=== PATIENT | male | born 1965 ===

== ENCOUNTER 2016-08-12 18:38 | Inpatient (IN) | payer MEDICAID, SELFPAY ==
[2016-08-12 18:38] VITALS: BMI 30.9
[2016-08-12] MEDS ORDERED: Piperacill/Tazo 3.375gm in Dex 50 ML IVPB STA (19:25)
--- NOTE | 2016-08-12 19:37 | C.PDOC ---
History Of Present Illness 51 year old patient, with a past medical history of gastritis, hypertension, kidney stones, renal cell carcinoma, chronic kidney disease, and asthma, presents to the ED complaining of left 4th finger pain and swelling for the past 5 days. Patient states he was shoveling snow and a blister formed. He popped it and then it became infected. He has been taking Advil for the pain. Patient denies fever, nausea, or vomiting. Time Seen by Provider: 08/12/16 19:00 Chief Complaint (Nursing): Upper Extremity Problem/Injury History Per: Patient History/Exam Limitations: no limitations Onset/Duration Of Symptoms: Days (5) Current Symptoms Are (Timing): Still Present Quality: "Pain" Severity: Moderate Pain Scale Rating Of: 5 Exacerbating Factor(s): Movement Recent travel outside of the [place]: No Past Medical History Reviewed: Historical Data, Nursing Documentation, Vital Signs Vital Signs: Last Vital Signs Temp 98.1 F 08/13/16 11:02 Pulse 65 08/13/16 11:02 Resp 18 08/13/16 11:02 BP 146/98 H 08/13/16 11:02 Pulse Ox 97 08/13/16 11:02 - Medical History PMH: Asthma, Bronchitis, Gastritis, HTN, Hyperlipidemia, Kidney Stones, Malignancy (Renal cell carcinoma as per recent biopsy), Chronic Kidney Disease, Sleep Apnea Family History: States: Unknown Family Hx - Social History Hx Tobacco Use: No Hx Alcohol Use: No Hx Substance Use: No - Immunization History Hx Tetanus Toxoid Vaccination: No Hx Influenza Vaccination: Yes Hx Pneumococcal Vaccination: Yes Review Of Systems Except As Marked, All Systems Reviewed And Found Negative. Constitutional: Negative for: Fever Gastrointestinal: Negative for: Nausea, Vomiting Musculoskeletal: Positive for: Hand Pain (left 4th finger) Skin: Positive for: Other Physical Exam - Physical Exam Appears: Non-toxic, No Acute Distress Skin: Warm, Dry, Other (small wound over the palmar aspect of the proximal phalynx of the left 4th finger (+)swelling to the palmar surface (+)redness (+) warmth) Head: Atraumatic, Normacephalic Neck: Normal ROM, Supple Chest: Symmetrical Cardiovascular: Rhythm Regular Respiratory: No Accessory Muscle Use Back: Normal Inspection Extremity: Normal ROM Neurological/Psych: Oriented x3, Normal Speech, Normal Cognition Gait: Steady ED Course And Treatment - Laboratory Results Result Diagrams: 08/12/16 19:56 08/12/16 19:56 Medical Decision Making Medical Decision Making: Plan: * Labs * Zosyn * vanco [address] Doshi- rec IV abx and admit and she will see as consult [address] Pike who will admit Disposition - Disposition Disposition: HOSPITALIZED Disposition Time: 22:46 Condition: STABLE - Clinical Impression Clinical Impression: Cellulitis of finger - Scribe Statement The provider has reviewed the documentation as recorded by the Scribe Leana Tomas Provider Attestation: All medical record entries made by the Jhonibnunu were at my direction and personally dictated by me. I have reviewed the chart and agree that the record accurately reflects my personal performance of the history, physical exam, medical decision making, and the department course for this patient. I have also personally directed, reviewed, and agree with the discharge instructions and disposition.
[2016-08-12 19:59] LABS: BASO % 0.6 % (0.0-2.0); EOS # 0.1 K/uL (0.0-0.7); EOS % 1.2 % (0.0-4.0); HEMATOCRIT 37.6 % (35.0-51.0); LYMPH # 2.1 K/uL (1.0-4.3); LYMPH % 26.1 % (20.0-40.0); MEAN CORPUSCULAR HEMOGLOBIN 31.7 pg (27.0-31.0); MEAN CORPUSCULAR HGB CONC 33.7 g/dL (33.0-37.0); MEAN PLATELET VOLUME 9.1 fL (7.2-11.7); MONO # 0.7 K/uL (0.0-0.8); MONO % 8.9 % (0.0-10.0); WHITE BLOOD COUNT 7.9 K/uL (4.8-10.8)
[2016-08-12 20:05] LABS: CHLORIDE 97 mmol/L (98-107); POTASSIUM 3.7 mmol/L (3.6-5.2); SODIUM 138 mmol/L (132-148)
[2016-08-12 20:07] LABS: AST/SGOT 17 U/L (17-59); BILIRUBIN,TOTAL 1.5 mg/dL (0.2-1.3); CARBON DIOXIDE 25 mmol/L (22-30); GFR AFRICAN-AMERICAN > 60
[2016-08-12 20:08] LABS: ALB/GLOB RATIO 1.3 (1.0-2.1); ALKALINE PHOSPHATASE 89 U/L (38-126); ALT/SGPT 12 U/L (21-72); BLOOD UREA NITROGEN 21 mg/dL (9-20); CALCIUM 8.6 mg/dl (8.6-10.4); GLUCOSE,RANDOM 102 mg/dL (75-110); TOTAL PROTEIN 7.1 g/dL (6.3-8.3)
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
[2016-08-12] MEDS ORDERED: Oxycodone/Acetaminophen 5/325 mg Tab PO PRN (22:35)
[2016-08-12] MEDS ORDERED: Iodixanol 320 MG/ML 100 ML BOTTLE IV ONE (22:57)
--- NOTE | 2016-08-12 23:33 | CP.PCM.PCO ---
Physician Communication Note - Physician Communication Note Physician Communication Note: Patient seen, possible OR tomorrow, full note to follow
--- NOTE | 2016-08-13 01:20 | CT ---
EXAM: CT Left Upper Extremity With Intravenous Contrast, Hand. CLINICAL HISTORY: 51 years old, male; Signs and symptoms; Swelling; Fingers; Left; Additional info: L 4th finger abscess TECHNIQUE: Axial computed tomography images of the left hand with intravenous contrast. This CT exam was performed using one or more of the following dose reduction techniques: automated exposure control, adjustment of the mA and/or kV according to patient size, and/or use of iterative reconstruction technique. Coronal and sagittal reformatted images were created and reviewed. CONTRAST: 100 mL of visipaque 320 administered intravenously. EXAM DATE/TIME: 08/12/2016 10:33 PM COMPARISON: There are no prior studies for comparison. FINDINGS: Bones/joints: Bony structures are intact. Soft tissues: There is soft tissue swelling about the left hand including the digits.. Soft tissue swelling and edema is greatest in the lower soft tissues of the fourth digit anterior to the proximal phalanx.. There is skin thickening. There is diffuse edema in the subcutaneous soft tissue. There is no focal rim-enhancing lesion to suggest discrete abscess. No underlying osseous lesion is identified. There is diffuse hyperemia in the left hand. IMPRESSION: Cellulitis of the left hand greatest in the volar soft tissues of the fourth digit, possible phlegmon, no discrete abscess
[2016-08-13] MEDS: Piperacill/Tazo 3.375gm in Dex 50 ML IVPB SCH ×4 (02:25→19:00)
[2016-08-13] MEDS ORDERED: Piperacillin/Tazobact 3.375 gm 100 ML IVPB ONE (04:12)
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
[2016-08-13] MEDS ORDERED: Oxycodone/Acetaminophen 5/325 mg Tab ONE (07:51)
--- NOTE | 2016-08-13 10:26 | CP.PCM.PN ---
<NicholsonMisael - Last Filed: 08/13/16 14:08> Subjective - Date & Time of Evaluation Date of Evaluation: 08/14/15 Time of Evaluation: 10:00 - Subjective Subjective: PGY2 on medicine Dr. Rodriguez service: Pt seen and examined at bedside in ED. Pt complains left hand pain secondary to abscess, controlled with pain med. No other complaints at this point. Objective - Vital Signs/Intake and Output Vital Signs (last 24 hours): Temp Pulse Resp BP Pulse Ox 97.6 F 71 18 148/86 99 08/13/16 07:46 08/13/16 07:46 08/13/16 07:46 08/13/16 07:46 08/13/16 07:46 - Medications Medications: Current Medications Famotidine (Pepcid) 20 mg IVP DAILY [facility] Last Admin: 08/13/16 01:10 Dose: 20 mg Piperacillin Sod/Tazobactam Sod (Zosyn 3.375 Gm Iv Premix) 50 mls @ 100 mls/hr IVPB Q6H [facility] Last Admin: 08/13/16 08:55 Dose: 100 mls/hr Vancomycin/Sodium Chloride (Vancocin) 200 mls @ 133.333 mls/hr IVPB Q12H [facility] Oxycodone/Acetaminophen (Percocet 5/325 Mg Tab) 1 tab PO Q6H PRN PRN Reason: Pain, severe (8-10) Stop: 08/15/16 22:36 Last Admin: 08/13/16 07:52 Dose: 1 tab - Constitutional Appears: Non-toxic, No Acute Distress - Head Exam Head Exam: NORMAL INSPECTION, NORMOCEPHALIC - Eye Exam Eye Exam: Normal appearance Pupil Exam: NORMAL ACCOMODATION - Respiratory Exam Respiratory Exam: Clear to Ausculation Bilateral, NORMAL BREATHING PATTERN. absent: Rhonchi, Wheezes - Cardiovascular Exam Cardiovascular Exam: REGULAR RHYTHM, +S1, +S2. absent: Gallop, Rubs - GI/Abdominal Exam GI & Abdominal Exam: Soft, Normal Bowel Sounds - Extremities Exam Additional comments: left 4th digits with dressing, tender to touch - Neurological Exam Neurological Exam: Alert, Awake, Oriented x3 - Psychiatric Exam Psychiatric exam: Normal Mood - Skin Skin Exam: Intact Assessment and Plan - Assessment and Plan (Free Text) Assessment: Abscess of L Finger -left 4th finger pain and swelling for the past 5 days. -Consult Hand surgeon, Dr. Doshi -> OR today -CT left hand showed left hand cellulitis greatest in the volar soft tissue of 4th digit, possible phlegmon, no discrete abscess per report. -NPO for surgery Zosyn 3.375gm IVPB Q6H (08/13) Vanco 1gm IVPB Q12 (08/13) Pain rated 7/10 Percocet 5/325 Q6H PRN Hypertension BP 148/86 now -likely due to pain -continue to monitor Prophylaxis Hold heparin for surgery Pepcid 20mg IVP SCDs <JenniferPeter H - Last Filed: 08/13/16 15:28> Objective - Vital Signs/Intake and Output Vital Signs (last 24 hours): Temp Pulse Resp BP Pulse Ox 97.6 F 66 19 147/78 97 08/13/16 15:08 08/13/16 15:08 08/13/16 15:08 08/13/16 15:08 08/13/16 15:08 - Medications Medications: Current Medications Docusate Sodium (Colace) 100 mg PO BID [facility] Famotidine (Pepcid) 20 mg IVP DAILY [facility] Last Admin: 08/13/16 12:03 Dose: Not Given Piperacillin Sod/Tazobactam Sod (Zosyn 3.375 Gm Iv Premix) 50 mls @ 100 mls/hr IVPB Q6H [facility] Last Admin: 08/13/16 14:44 Dose: 100 mls/hr Vancomycin/Sodium Chloride (Vancocin) 200 mls @ 133.333 mls/hr IVPB Q12H [facility] Last Admin: 08/13/16 12:03 Dose: Not Given Oxycodone/Acetaminophen (Percocet 5/325 Mg Tab) 1 tab PO Q4H PRN PRN Reason: Pain, moderate (4-7) Stop: 08/16/16 13:29 Attending/Attestation - Attestation I have personally seen and examined this patient.: Yes I have fully participated in the care of the patient.: Yes I have reviewed all pertinent clinical information, including history, physical exam and plan: Yes Notes (Text): 08/13/16 15:27 Medical Attending: Patient was seen and examined by me. Agree with the above note by the resident. At this time continue with IV abx Vancomycin as well as IV Zosyn. Overnight team has asked surgery to evaluate as it mayneed surgery
[2016-08-13] MEDS: Vancomycin 1 gm/NS 200 ml 200 ML IVPB SCH ×2 (12:03→21:00)
[2016-08-13] MEDS ORDERED: Midazolam 2 MG/2 ML VIAL ONE (12:48)
[2016-08-13] MEDS ORDERED: Propofol 10 mg/ml Inj (20 ML) ONE (12:49)
[2016-08-13] MEDS ORDERED: Lactated Ringer's 1,000 ML IV ONE (12:50)
[2016-08-13] MEDS ORDERED: Bupivacaine HCl 0.5% PF (10 ml) Inj ONE ×2 (12:55)
[2016-08-13] MEDS ORDERED: Lidocaine 1% Inj (20ml) ONE (12:55)
[2016-08-13] MEDS ORDERED: Bacitracin 500 Units/gm Oint Foilpak UD ONE (13:17)
[2016-08-13] MEDS ORDERED: Oxycodone/Acetaminophen 5/325 mg Tab PO PRN (13:28)
[2016-08-13] MEDS ORDERED: HYDROmorphone 0.5 mg/0.5 ml ISec IVP PRN (13:33)
--- NOTE | 2016-08-13 13:34 | PCM.SURG1 ---
Surgeon's Initial Post Op Note - Surgeon's Notes Surgeon: Glenda Transmission Design Engineer: [id number] Type of Anesthesia: General Endo Pre-Operative Diagnosis: Left 4th digit deep space abscess, possible tenosynovitis Operative Findings: see op note Post-Operative Diagnosis: Left 4th digit deep space abscess, impending tenosynovitis Operation Performed: L 4th digit incision and drainage of deep space abscess Specimen/Specimens Removed: Wound cultures Estimated Blood Loss: EBL {In ML}: 5 Blood Products Given: N/A Drains Used: No Drains Post-Op Condition: Good Date of Surgery/Procedure: 08/13/16 Time of Surgery/Procedure: 12:50
--- NOTE | 2016-08-13 13:39 | CP.PCM.PCO ---
Physician Communication Note - Physician Communication Note Physician Communication Note: Patient status post I&D, comfortable, no complaint of pain. Assessment/Plan - Assessment and Plan (Free Text) Assessment: PE: Left ring finger erythema decreased after I&D. There is no active bleding, dressing are clean and dry. A: 51 year old with deep space abscess to left ring finger. Plan: Will restart soaks later this afternoon. He should continues soaks with 20cc bedadine for every 100 cc of water or saline until the wound closes which should take about 1 week. Keep the incision covered with a band aid and Medihoney. He will have at least 2 more doese of IV antibiotics. If the wound is significantly improved tomorrow, he may be discharged with Augmentin and Medihoney. Follow up with me after discharge. Will follow along with residents while in house.
[2016-08-13 17:33] LABS: INR 1.1
[2016-08-14] MEDS: Piperacill/Tazo 3.375gm in Dex 50 ML IVPB SCH ×3 (01:00→13:43)
[2016-08-14 08:19] LABS: BASO % 0.3 % (0.0-2.0); EOS # 0.1 K/uL (0.0-0.7); EOS % 1.6 % (0.0-4.0); HEMATOCRIT 43.8 % (35.0-51.0); LYMPH # 1.9 K/uL (1.0-4.3); LYMPH % 27.4 % (20.0-40.0); MEAN CELL VOLUME 94.9 fL (80.0-94.0); MEAN CORPUSCULAR HEMOGLOBIN 31.3 pg (27.0-31.0); MEAN CORPUSCULAR HGB CONC 32.9 g/dL (33.0-37.0); MEAN PLATELET VOLUME 8.9 fL (7.2-11.7); MONO # 0.6 K/uL (0.0-0.8); MONO % 7.9 % (0.0-10.0); RED CELL DISTRIBUTION WIDTH 13.6 % (11.5-14.5); WHITE BLOOD COUNT 7.1 K/uL (4.8-10.8)
[2016-08-14 08:27] LABS: CHLORIDE 98 mmol/L (98-107)
[2016-08-14 08:28] LABS: POTASSIUM 4.4 mmol/L (3.6-5.2); SODIUM 139 mmol/L (132-148)
[2016-08-14 08:30] LABS: ALB/GLOB RATIO 1.2 (1.0-2.1); ALKALINE PHOSPHATASE 100 U/L (38-126); ALT/SGPT 12 U/L (21-72); AST/SGOT 20 U/L (17-59); BILIRUBIN,TOTAL 3.7 mg/dL (0.2-1.3); BLOOD UREA NITROGEN 20 mg/dL (9-20); CARBON DIOXIDE 24 mmol/L (22-30); GFR AFRICAN-AMERICAN > 60; GLUCOSE,RANDOM 96 mg/dL (75-110); TOTAL PROTEIN 8.2 g/dL (6.3-8.3)
[2016-08-14 08:31] LABS: CALCIUM 9.1 mg/dl (8.6-10.4); MAGNESIUM 2.2 mg/dL (1.6-2.3)
--- NOTE | 2016-08-14 09:03 | OP ---
PROCEDURE DATE: 08/13/2016 SURGEON: Dr. Ann Marie Doshi. PROCESS CONSULTANT: Dr. Matt Worley. PREOPERATIVE DIAGNOSIS: Left ring finger deep space abscess. POSTOPERATIVE DIAGNOSIS: Left ring finger deep space abscess, impending tenosynovitis. PROCEDURE: Incision and drainage of left ring finger deep space abscess. ESTIMATED BLOOD LOSS: 5 mL. COUNT: Lap, sponge and needle count were correct at the end of the case. CONDITION: The patient was stable upon discharge to recovery. SPECIMENS: Culture was sent for aerobic and anaerobic x 2. INDICATIONS FOR SURGERY: The patient is a 51-year-old man with a several day history of erythema to the ring finger which has gotten progressively swollen and tender. He came to the Emergency Room last night, was started on IV antibiotics with anticipation of going to the OR today for formal incision and drainage. DESCRIPTION OF PROCEDURE: The patient was identified in the holding area. The left arm was marked. He was then brought into the operating room and laid supine on the operating room table. Once sedation was provided, the left wrist was blocked using 10 mL of 1% lidocaine and 0.5% Marcaine in a 50:50 mixture. The anesthetic was used to block the median nerve, ulnar nerve, ulnar sensory and radial sensory nerves at the wrist. The hand was then prepped and draped in the usual sterile fashion. Using a 15 scalpel, incision was made over the proximal phalanx aspect of the finger on the volar surface using a diagonal incision extending from the ulnar aspect of the PIP joint towards the radial aspect of the MCP joint in the event that he would need reconstruction in the future. The incision was taken down through skin and dermis. The flexor tendon sheath was not visualized; however, organized phlegmon as well as pus was expressed from the deep tissue once the fascial attachments on the volar surface of the finger were divided with tenotomy scissors. Approximately 1 mL of purulent discharge was expressed. The wound was then copiously irrigated. Immediately after decompression, the erythema over the proximal aspect of the finger had decreased to a light pink color and the tissue was no longer firm but normal turgor and consistency. The wound was then dressed with bacitracin, Adaptic, 4 x 4 gauze and secured in place with a Kerlix. The patient tolerated the procedure well, was transferred to a stretcher and brought to recovery in stable condition. Ann Marie Doshi MD cc: [id number] TT: 08/13/2016 15:45:07 mn MTDD
[2016-08-14] MEDS: Vancomycin 1 gm/NS 200 ml 200 ML IVPB SCH (10:22)
--- NOTE | 2016-08-14 14:14 | CP.PCM.PN ---
Subjective - Date & Time of Evaluation Date of Evaluation: 08/14/16 Time of Evaluation: 14:09 - Subjective Subjective: PGY-1 note for Plastic surgery, Dr. Doshi Pt S&E. VAMSIO. POD#1 I&D of left ring finger. No active bleeding noted. Pt reports pain and swelling have decreased today. No active bleeding noted, dressings have been changed and appear clean and dry. Nursing reports pt tolerating hand soaks without discomfort. Objective - Vital Signs/Intake and Output Vital Signs (last 24 hours): Temp Pulse Resp BP Pulse Ox 97.8 F 71 18 124/75 98 08/14/16 08:00 08/14/16 08:00 08/14/16 08:00 08/14/16 08:00 08/13/16 23:45 - Medications Medications: Current Medications Docusate Sodium (Colace) 100 mg PO BID [facility] Last Admin: 08/14/16 10:22 Dose: 100 mg Famotidine (Pepcid) 20 mg IVP DAILY [facility] Last Admin: 08/14/16 10:23 Dose: 20 mg Piperacillin Sod/Tazobactam Sod (Zosyn 3.375 Gm Iv Premix) 50 mls @ 100 mls/hr IVPB Q6H [facility] Last Admin: 08/14/16 13:43 Dose: 100 mls/hr Vancomycin/Sodium Chloride (Vancocin) 200 mls @ 133.333 mls/hr IVPB Q12H [facility] Last Admin: 08/14/16 10:22 Dose: 133.333 mls/hr Oxycodone/Acetaminophen (Percocet 5/325 Mg Tab) 1 tab PO Q4H PRN PRN Reason: Pain, moderate (4-7) Stop: 08/16/16 13:29 - Labs Labs: PT 12.5 SECONDS (9.7-12.2) H 08/13/16 17:07 INR 1.1 08/13/16 17:07 APTT 35 SECONDS (21-34) H 08/13/16 17:07 - Constitutional Appears: Non-toxic, No Acute Distress - Head Exam Head Exam: NORMAL INSPECTION, NORMOCEPHALIC - Eye Exam Eye Exam: Normal appearance Pupil Exam: PERRL - Respiratory Exam Respiratory Exam: NORMAL BREATHING PATTERN - GI/Abdominal Exam GI & Abdominal Exam: Soft, Normal Bowel Sounds - Extremities Exam Additional comments: left 4th digit with dressing, remains tender to touch - Back Exam Back Exam: NORMAL INSPECTION - Neurological Exam Neurological Exam: Alert, Awake, Oriented x3 - Skin Skin Exam: Normal Color, Warm Assessment and Plan - Assessment and Plan (Free Text) Assessment: 51 year old male with left 4th digit deep space abscess Plan: Pt clear for discharge from surgical perspective Prescription for Augmentin in physical chart Give pt gauze/dressings and medihoney for home changes Please provide pt with betadine solution to continue soaks three times daily ( Mixture of 20cc betadine with 100cc water) until closure of wound ( approximately one week) Follow up with Dr. Doshi within one week in office Surgical team d/w Dr. Glenda Davila, PGY-1
[2016-08-14 15:41] VITALS: BP 147/81; PULSE 67; RESP 20; TEMP 98.1; O2SAT 96
[2016-08-14] MEDS ORDERED: Influenza Virus Vaccine 45 mcg/0.5 ml Syr IM ONE (18:40)
[2016-08-14] MEDS ORDERED: Pneumococcal 23-Valent Vaccine IM ONE (18:40)
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
== END 2016-08-14 20:03 | disposition home or self-care (01) | DRG 270 ==
LOC: C.ER 18:38 → C.9E 22:46 → C.5T 08-13 10:25 → OBSVTOIN 08-14 10:32
PROVIDERS: ADMIT Internal Medicine; ATTEND Internal Medicine
PROC: 0J9K0ZZ Drainage of Left Hand Subcutaneous Tissue and Fascia, Open Approach (ICD-10-PCS; principal; 2016-08-13 12:50)
DX: L03.012 Cellulitis of left finger (principal); L02.512 Cutaneous abscess of left hand; S60.425A Blister (nonthermal) of left ring finger, initial encounter; M65.842 Other synovitis and tenosynovitis, left hand; I10 Essential (primary) hypertension; I25.10 Atherosclerotic heart disease of native coronary artery without angina pectoris; J45.909 Unspecified asthma, uncomplicated; X58.XXXA Exposure to other specified factors, initial encounter; Y93.H1 Activity, digging, shoveling and raking; Y92.9 Unspecified place or not applicable

== ENCOUNTER 2016-10-06 23:59 | Emergency (ER) | payer SELFPAY ==
[2016-10-06 23:59] VITALS: BMI 30.9
[2016-10-07 00:07] VITALS: TEMP 98.2; O2SAT 98
--- NOTE | 2016-10-07 01:56 | C.PDOC ---
History Of Present Illness Patient is a 51 year old male who presents to the ER with a complaint of congestion for the past 4 days, associated with a productive cough and yellow sputum. Denies nausea, vomiting, fever, diarrhea, or shortness of breath. Time Seen by Provider: 10/07/16 00:10 Chief Complaint (Nursing): Cough, Cold, Congestion History Per: Patient History/Exam Limitations: no limitations Onset/Duration Of Symptoms: Hrs Current Symptoms Are (Timing): Still Present Recent travel outside of the [place]: No Past Medical History Reviewed: Historical Data, Nursing Documentation, Vital Signs Vital Signs: Last Vital Signs Temp 98.2 F 10/07/16 02:15 Pulse 78 10/07/16 02:15 Resp 16 10/07/16 02:15 BP 138/86 10/07/16 02:15 Pulse Ox 98 10/07/16 02:15 - Medical History PMH: Asthma, Bronchitis, Gastritis, HTN, Hyperlipidemia, Kidney Stones, Malignancy (Renal cell carcinoma as per recent biopsy), Chronic Kidney Disease, Sleep Apnea - [facility] Procedures DRAINAGE OF L HAND SUBCU/FASCIA, OPEN APPROACH (08/14/16) Family History: States: Unknown Family Hx - Social History Hx Tobacco Use: No Hx Alcohol Use: No Hx Substance Use: No - Immunization History Hx Tetanus Toxoid Vaccination: No Hx Influenza Vaccination: Yes Hx Pneumococcal Vaccination: Yes Review Of Systems Constitutional: Negative for: Fever, Chills ENT: Positive for: Nose Congestion Respiratory: Positive for: Cough, Sputum (Yellow). Negative for: Shortness of Breath Gastrointestinal: Negative for: Nausea, Vomiting, Diarrhea Physical Exam - Physical Exam Appears: Well, Non-toxic Skin: Normal Color, Warm, Dry Head: Atraumatic, Normacephalic Oral Mucosa: Moist Tongue: Normal Appearing, No Erythema Throat: Normal, No Erythema, No Exudate Chest: Symmetrical, No Tenderness Cardiovascular: Rhythm Regular, No Murmur Respiratory: Normal Breath Sounds, No Rales, No Rhonchi, No Wheezing, Other ( Consant coughing) Gastrointestinal/Abdominal: Soft, No Tenderness Neurological/Psych: Oriented x3, Normal Speech, Normal Cognition ED Course And Treatment O2 Sat by Pulse Oximetry: 98 (Room air) Pulse Ox Interpretation: Normal - Radiology CXR: Interpreted by Me, Viewed By Me CXR Interpretation: Yes: No Acute Disease Progress Note: CXR ordered. Zithromax administered. Upon reexamination, patient shows improvement, will discharge home. Disposition - Disposition Referrals: [facility] [Outside] Disposition: HOME/ ROUTINE Disposition Time: 01:54 Condition: STABLE Additional Instructions: Follow up with PMD/clinic within 1-2 days. Return to ED if feel worse. Prescriptions: Albuterol Sulfate [Proair Hfa] 1 puff IH Q6 PRN #1 inh PRN Reason: Cough Promethazine HCl/Codeine [Prometh-Codein 6.25-10 mg/5 ml] 5 ml PO .Q4-6H #150 ml Azithromycin [Zithromax] 250 mg PO DAILY #4 tab Instructions: Acute Bronchitis (ED) - Clinical Impression Clinical Impression: Bronchitis - Scribe Statement The provider has reviewed the documentation as recorded by the Scribe Felipe Butt All medical record entries made by the Scribe were at my direction and personally dictated by me. I have reviewed the chart and agree that the record accurately reflects my personal performance of the history, physical exam, medical decision making, and the department course for this patient. I have also personally directed, reviewed, and agree with the discharge instructions and disposition.
[2016-10-07 02:16] VITALS: BP 138/86; PULSE 78; RESP 16
--- NOTE | 2016-10-07 11:09 | RAD ---
HISTORY: cough COMPARISON: CT scan dated 06/05/2016 TECHNIQUE: Chest PA and lateral FINDINGS: LUNGS: Mild venous congestion. Right hilar prominence. Focal opacity at the right lung base again noted suggestive for either eventeration of the right hemidiaphragm which may be related to a hernia. PLEURA: No significant pleural effusion identified. No pneumothorax apparent. CARDIOVASCULAR: Calcification at the aortic knob. Tortuous prominent aorta. OSSEOUS STRUCTURES: No significant abnormalities. VISUALIZED UPPER ABDOMEN: Normal. OTHER FINDINGS: None. IMPRESSION: Mild venous congestion. Right hilar prominence. Focal opacity at the right lung base again noted suggestive for either eventeration of the right hemidiaphragm which may be related to a hernia.
== END 2016-10-07 02:16 | disposition home or self-care (01) ==
LOC: SUPCPDRO 23:59 → C.ER 23:59
DX: J40 Bronchitis, not specified as acute or chronic (principal)

== ENCOUNTER 2017-02-26 09:30 | Emergency (ER) | payer SELFPAY ==
[2017-02-26 09:30] VITALS: BMI 30.9
[2017-02-26 09:43] VITALS: TEMP 98.5
[2017-02-26] MEDS ORDERED: Sodium Chloride 0.9% 1,000 ML IV STA (11:13)
[2017-02-26 11:44] LABS: BASO % 0.3 % (0.0-2.0); HEMATOCRIT 40.9 % (35.0-51.0); LYMPH # 1.4 K/uL (1.0-4.3); LYMPH % 29.4 % (20.0-40.0); MEAN CELL VOLUME 94.6 fL (80.0-94.0); MEAN CORPUSCULAR HEMOGLOBIN 32.6 pg (27.0-31.0); MEAN CORPUSCULAR HGB CONC 34.5 g/dL (33.0-37.0); MEAN PLATELET VOLUME 8.7 fL (7.2-11.7); MONO # 0.4 K/uL (0.0-0.8); MONO % 8.4 % (0.0-10.0); WHITE BLOOD COUNT 4.9 K/uL (4.8-10.8)
[2017-02-26 11:50] LABS: URINE BILIRUBIN NEGATIVE (NEGATIVE); URINE BLOOD NEGATIVE (NEGATIVE); URINE COLOR Colorless (YELLOW); URINE GLUCOSE (UA) NORMAL (Normal); URINE KETONE NEGATIVE (NEGATIVE); URINE LEUKOCYTE ESTERASE NEG Leu/uL (Negative); URINE PROTEIN NEGATIVE (NEGATIVE); URINE UROBILINOGEN NORMAL mg/dL (0.2-1.0)
[2017-02-26 11:54] LABS: CHLORIDE 101 mmol/L (98-107); POTASSIUM 4.5 mmol/L (3.6-5.2); SODIUM 137 mmol/L (132-148)
[2017-02-26 11:56] LABS: ALB/GLOB RATIO 1.1 (1.0-2.1); AST/SGOT 21 U/L (17-59); BILIRUBIN,TOTAL 1.5 mg/dL (0.2-1.3); CARBON DIOXIDE 25 mmol/L (22-30); GFR AFRICAN-AMERICAN > 60; TOTAL PROTEIN 8.4 g/dL (6.3-8.3)
[2017-02-26 11:57] LABS: ALKALINE PHOSPHATASE 91 U/L (38-126); ALT/SGPT 25 U/L (21-72); BLOOD UREA NITROGEN 14 mg/dL (9-20); CALCIUM 9.4 mg/dl (8.6-10.4); GLUCOSE,RANDOM 80 mg/dL (75-110)
[2017-02-26] MEDS ORDERED: Morphine 4 MG/ML VIAL ONE (12:24)
[2017-02-26 12:36] VITALS: BP 150/84; PULSE 88; RESP 16; O2SAT 99
--- NOTE | 2017-02-26 12:36 | CT ---
PROCEDURE: CT Abdomen and Pelvis without Oral or IV contrast. HISTORY: right flank pain COMPARISON: CT abdomen and pelvis without contrast performed 06/05/16 TECHNIQUE: Contiguous axial images of the abdomen and pelvis. No oral or IV contrast administered. Coronal and Sagittal reformats generated and reviewed. Radiation dose: Total exam DLP = 747.43 mGy-cm. This CT exam was performed using one or more of the following dose reduction techniques: Automated exposure control, adjustment of the mA and/or kV according to patient size, and/or use of iterative reconstruction technique. FINDINGS: There is limited evaluation of the solid organs without the administration of IV contrast. LOWER THORAX: Right basilar atelectasis or infiltrate. Minimal left basilar atelectasis. No visible pleural effusion or pneumothorax. LIVER: Unremarkable unenhanced appearance. GALLBLADDER AND BILE DUCTS: Unremarkable unenhanced appearance. PANCREAS: Unremarkable unenhanced appearance. SPLEEN: Unremarkable unenhanced appearance. ADRENALS: Unremarkable unenhanced appearance. KIDNEYS AND URETERS: Focal cortical densities involving the mid to upper right medial kidney may reflect postsurgical change. Perinephric stranding adjacent to upper and lower poles, possibly postsurgical change/scarring. No hydronephrosis or obstructing renal calculus. Nonobstructing 3 mm left upper pole renal calculus. BLADDER: The urinary bladder appears unremarkable. REPRODUCTIVE: The prostate gland measures approximately 3.6 x 4.7 cm. APPENDIX: The appendix appears within normal limits of caliber. No secondary signs of acute appendicitis. BOWEL: The stomach is nondistended. Lack of oral contrast limits evaluation for bowel pathology. The bowel loops appear within normal limits of caliber without evidence of intestinal obstruction. PERITONEUM: No significant free fluid. No definite free air. LYMPH NODES: No bulky lymphadenopathy identified. VASCULATURE: No aortic aneurysm. BONES: Osseous demineralization. Degenerative changes. OTHER FINDINGS: Elevation of the right hemidiaphragm. IMPRESSION: Postsurgical changes involving the right mid and upper pole kidneys. Perinephric stranding adjacent to upper and lower poles, possibly postsurgical change/scarring. Nonobstructing 3 mm left renal calculus. Right basilar atelectasis or infiltrate. Minimal left basilar atelectasis. Remainder of findings as above.
--- NOTE | 2017-02-26 12:52 | C.PDOC ---
History Of Present Illness 51 y/o male, history of renal cancer, presents to emergency department with complaint of right flank pain for 18 days. Patient denies fever, chills, nausea , vomiting, dysuria, or other associated symptoms. Patient reports heavy lifting at work. Time Seen by Provider: 02/26/17 10:02 Chief Complaint (Nursing): Male Genitourinary History Per: Patient History/Exam Limitations: no limitations Onset/Duration Of Symptoms: Days Current Symptoms Are (Timing): Still Present Quality Of Discomfort: "Pain" Associated Symptoms: denies: Fever, Chills, Nausea, Vomiting, Diarrhea, Urinary Symptoms Recent travel outside of the [place]: No Past Medical History Reviewed: Historical Data, Nursing Documentation, Vital Signs Vital Signs: Last Vital Signs Temp 98.5 F 02/26/17 09:38 Pulse 88 02/26/17 12:20 Resp 16 02/26/17 12:20 BP 150/84 02/26/17 12:20 Pulse Ox 99 02/26/17 15:25 - Medical History PMH: Asthma, Bronchitis, Gastritis, HTN, Hyperlipidemia, Kidney Stones, Malignancy (Renal cell carcinoma as per recent biopsy), Chronic Kidney Disease, Sleep Apnea - [facility] Procedures DRAINAGE OF L HAND SUBCU/FASCIA, OPEN APPROACH (08/14/16) Family History: States: Unknown Family Hx - Social History Hx Tobacco Use: No Hx Alcohol Use: No Hx Substance Use: No - Immunization History Hx Tetanus Toxoid Vaccination: No Hx Influenza Vaccination: Yes Hx Pneumococcal Vaccination: Yes Review Of Systems Except As Marked, All Systems Reviewed And Found Negative. Constitutional: Negative for: Fever, Chills Cardiovascular: Negative for: Chest Pain Respiratory: Negative for: Cough, Shortness of Breath Gastrointestinal: Negative for: Nausea, Vomiting, Diarrhea Genitourinary: Negative for: Dysuria, Hematuria Musculoskeletal: Positive for: Other (right flank pain) Skin: Negative for: Rash Physical Exam - Physical Exam Appears: Non-toxic, No Acute Distress Skin: Normal Color, Warm, Dry Head: Atraumatic, Normacephalic Oral Mucosa: Moist Chest: Symmetrical Cardiovascular: Rhythm Regular Respiratory: Normal Breath Sounds, No Rales, No Rhonchi, No Wheezing Gastrointestinal/Abdominal: Soft, No Tenderness, No Distention, No Guarding, No Rebound Back: No CVA Tenderness, Paraspinal Tenderness (mild R flank tenderness) Extremity: Normal ROM, Capillary Refill (< 2 sec. ) Neurological/Psych: Oriented x3, Normal Speech, Normal Cognition ED Course And Treatment - Laboratory Results Result Diagrams: 02/26/17 11:38 02/26/17 11:38 O2 Sat by Pulse Oximetry: 99 (RA) Pulse Ox Interpretation: Normal - CT Scan/US CT OF ABD/PELVIS W/O CONTRAST Other Rad Studies (CT/US): Read By Radiologist, Radiology Report Reviewed CT/US Interpretation: Accession No. : [id number]. Patient Name / ID : EMILIANA PARRA / [id number]. Exam Date : 02/26/2017 11:45:42 ( Approved ). Study Comment : Sex / Age : M / 51Y. Creator : Vidya Vaughn MD. Dictator : Vidya Vaughn MD. Mounted Police : Assistant Manager Of Operations : Vidya Vaughn MD. Approver2 : Report Date : 02/26/2017 12:35:25. My Comment : . PROCEDURE: CT Abdomen and Pelvis without Oral or IV contrast. HISTORY: right flank pain. COMPARISON: CT abdomen and pelvis without contrast performed 06/05/16. TECHNIQUE: Contiguous axial images of the abdomen and pelvis. No oral or IV contrast administered. Coronal and Sagittal reformats generated and reviewed. Radiation dose: Total exam DLP = 747.43 mGy-cm. This CT exam was performed using one or more of the following dose reduction techniques: Automated exposure control, adjustment of the mA and/or kV according to patient size, and/ or use of iterative reconstruction technique. FINDINGS: There is limited evaluation of the solid organs without the administration of IV contrast. LOWER THORAX: Right basilar atelectasis or infiltrate. Minimal left basilar atelectasis. No visible pleural effusion or pneumothorax. LIVER: Unremarkable unenhanced appearance. GALLBLADDER AND BILE DUCTS: Unremarkable unenhanced appearance. PANCREAS: Unremarkable unenhanced appearance. SPLEEN: Unremarkable unenhanced appearance. ADRENALS: Unremarkable unenhanced appearance. KIDNEYS AND URETERS: Focal cortical densities involving the mid to upper right medial kidney may reflect postsurgical change. Perinephric stranding adjacent to upper and lower poles, possibly postsurgical change/ scarring. No hydronephrosis or obstructing renal calculus. Nonobstructing 3 mm left upper pole renal calculus. BLADDER: The urinary bladder appears unremarkable. REPRODUCTIVE: The prostate gland measures approximately 3.6 x 4.7 cm. APPENDIX: The appendix appears within normal limits of caliber. No secondary signs of acute appendicitis. BOWEL: The stomach is nondistended. Lack of oral contrast limits evaluation for bowel pathology. The bowel loops appear within normal limits of caliber without evidence of intestinal obstruction. PERITONEUM: No significant free fluid. No definite free air. LYMPH NODES: No bulky lymphadenopathy identified. VASCULATURE: No aortic aneurysm. BONES: Osseous demineralization. Degenerative changes. OTHER FINDINGS: Elevation of the right hemidiaphragm. IMPRESSION: Postsurgical changes involving the right mid and upper pole kidneys. Perinephric stranding adjacent to upper and lower poles, possibly postsurgical change/scarring. Nonobstructing 3 mm left renal calculus. Right basilar atelectasis or infiltrate. Minimal left basilar atelectasis. Remainder of findings as above. Progress Note: Bloodwork and CT scan ordered, reviewed. Pain control medications given. On re-eval, patient reports improvement of pain, and is ambulatory in ED w/o difficulty. Advised to follow up with PMD. Disposition - Disposition Disposition: HOME/ ROUTINE Disposition Time: 13:16 Condition: STABLE Additional Instructions: FOLLOW UP WITH YOUR PMD WITHIN 1-2 DAYS. RETURN TO ed IF FEEL WORSE. Prescriptions: traMADol [Ultram] 50 mg PO Q6 #20 tab Instructions: Flank Pain (ED) Forms: [facility] ([employer]), Work Excuse Print Language: AZERBAIJANI - Clinical Impression Clinical Impression: Flank pain - PA / ACCOUNTS RECEIVABLE ASSOCIATE / Resident Statement MD/DO has reviewed & agrees with the documentation as recorded. - Scribe Statement The provider has reviewed the documentation as recorded by the Scribe David Herrera All medical record entries made by the Scribe were at my direction and personally dictated by me. I have reviewed the chart and agree that the record accurately reflects my personal performance of the history, physical exam, medical decision making, and the department course for this patient. I have also personally directed, reviewed, and agree with the discharge instructions and disposition.
[2017-02-26] MEDS ORDERED: Sodium Chloride 0.9% 1,000 ML ONE (13:35)
== END 2017-02-26 13:37 | disposition home or self-care (01) ==
LOC: C.ER 09:30
DX: R10.9 Unspecified abdominal pain (principal)
CPT/HCPCS: 74176; 80053; 81001; 83690; 85025; 96361; 96374; 99284; J2270; J7040

== ENCOUNTER 2017-03-07 18:17 | Emergency (ER) | payer SELFPAY ==
[2017-03-07 18:18] VITALS: BMI 30.9
[2017-03-07] MEDS ORDERED: Iohexol 240 (50 ml) PO ONE (19:23)
[2017-03-07] MEDS ORDERED: Sodium Chloride 0.9% 1,000 ML IV ONE (19:24)
--- NOTE | 2017-03-07 19:25 | C.PDOC ---
History Of Present Illness 51 year old male presents to the ED for evaluation of right-sided flank pain which has been occurring in intermittent episodes for around 1 week. Patient reports his pain is mostly around his right lateral chest wall area. He denies fever, chills, nausea, vomiting, dysuria, and hematuria. Chief Complaint (Nursing): Back Pain History Per: Patient History/Exam Limitations: no limitations Onset/Duration Of Symptoms: Intermittent Episodes (1 week ) Current Symptoms Are (Timing): Still Present Quality Of Discomfort: "Pain" Additional History Per: Patient Past Medical History Reviewed: Historical Data, Nursing Documentation, Vital Signs Vital Signs: Last Vital Signs Temp 98.0 F 03/07/17 18:42 Pulse 90 03/07/17 18:42 Resp 18 03/07/17 18:42 BP 158/80 H 03/07/17 18:42 Pulse Ox 97 03/07/17 22:52 - Medical History PMH: Asthma, Bronchitis, Gastritis, HTN, Hyperlipidemia, Kidney Stones, Malignancy (Renal cell carcinoma as per recent biopsy), Chronic Kidney Disease, Sleep Apnea Surgical History: No Surg Hx - [facility] Procedures DRAINAGE OF L HAND SUBCU/FASCIA, OPEN APPROACH (08/14/16) Family History: States: Unknown Family Hx - Social History Hx Tobacco Use: No Hx Alcohol Use: No Hx Substance Use: No - Immunization History Hx Tetanus Toxoid Vaccination: No Hx Influenza Vaccination: Yes Hx Pneumococcal Vaccination: Yes Review Of Systems Constitutional: Negative for: Fever, Chills Cardiovascular: Positive for: Other (right lateral chest wall pain ) Gastrointestinal: Negative for: Nausea, Vomiting Genitourinary: Negative for: Dysuria, Hematuria Musculoskeletal: Positive for: Other (right flank pain ) Physical Exam - Physical Exam Appears: Well, No Acute Distress Skin: Normal Color, Warm, Dry Eye(s): bilateral: Normal Inspection, PERRL, EOMI Nose: Normal Throat: Normal Neck: Normal Chest: Symmetrical, No Deformity, Tenderness (to right lower rib cage area ) Cardiovascular: Rhythm Regular Respiratory: Normal Breath Sounds Gastrointestinal/Abdominal: Normal Exam, Soft, No Tenderness, No Guarding, No Rebound Back: CVA Tenderness (mild, right-sided) Extremity: Normal ROM, Capillary Refill (less than 2 seconds ) Neurological/Psych: Oriented x3, Normal Speech, Normal Cognition Gait: Steady ED Course And Treatment - Laboratory Results Result Diagrams: 03/07/17 19:34 03/07/17 19:34 O2 Sat by Pulse Oximetry: 97 (on RA) Pulse Ox Interpretation: Normal - CT Scan/US CT A/P Other Rad Studies (CT/US): Read By Radiologist, Radiology Report Reviewed CT/US Interpretation: EXAM: CT Abdomen and Pelvis With Intravenous Contrast. CLINICAL HISTORY: 51 years old, male; Pain; Abdominal pain; Flank; Right upper quadrant (ruq); Chest wall pain;. Additional info: Right lowqer chest and rib cage pain. TECHNIQUE: Axial computed tomography images of the abdomen and pelvis with intravenous contrast. All CT. scans at this facility use one or more dose reduction techniques, viz.: automated exposure control;. ma/kV adjustment per patient size (including targeted exams where dose is matched to indication; i.e. head); or iterative reconstruction technique. Coronal and sagittal reformatted images were created and reviewed. CONTRAST: 100 mL of VISIPAQUE 320 administered intravenously. COMPARISON: No relevant prior studies available. FINDINGS: ABDOMEN: Liver: No acute findings. Gallbladder and bile ducts: The gallbladder is decompressed. No calcified stones. No significant. intra- or extrahepatic biliary ductal dilation. Pancreas: Enhances homogeneously. No ductal dilation. No discrete mass. Spleen: No acute findings. Adrenals: No acute findings. Kidneys and ureters: No acute findings. No hydronephrosis or renal calculi. No discrete solid mass. PELVIS: Bladder: No acute findings. Reproductive: No acute findings. Appendix: The air filled appendix is of normal caliber (series 6, image 118) . ABDOMEN and PELVIS: Stomach and bowel: No obstruction. No mucosal thickening. Colonic diverticulosis, with trace mural. thickening, likely peristalsis. Peritoneum: No significant fluid collection. No free air. Lymph nodes: No pathologically enlarged lymph nodes. Vasculature: Calcified atherosclerotic disease. Bones: No acute fracture. IMPRESSION: Colonic diverticulosis, without inflammation. No CT findings to explain the patient's right upper quadrant pain, as detailed above.. CT Chest Other Rad Studies (CT/US): Interpreted By Me, Read By Radiologist, Radiology Report Reviewed CT/US Interpretation: 51 years old, male; Pain; Abdominal pain; Flank; Right upper quadrant (ruq); Chest wall pain;. Additional info: Right lowqer chest and rib cage pain. TECHNIQUE: Axial computed tomography images of the chest with intravenous contrast. All CT scans at this. facility use one or more dose reduction techniques, viz.: automated exposure control; ma/kV. adjustment per patient size (including targeted exams where dose is matched to indication; i.e. head);. or iterative reconstruction technique. Coronal and sagittal reformatted images were created and reviewed. CONTRAST: 100 mL of VISIPAQUE 320 administered intravenously. COMPARISON: None. FINDINGS: Lungs: No mass. No consolidation. Patchy groundglass bibasilar opacification, with interstitial. thickening. Pleural spaces: No significant effusion. No pneumothorax. Heart: No cardiomegaly. No significant pericardial effusion. Vasculature: No aortic aneurysm. Lymph nodes: No enlarged lymph nodes. Bones: No acute fracture. IMPRESSION: Patchy groundglass bibasilar opacification with interstitial thickening, findings suggesting pulmonary. vascular congestion. No focal infiltrate or effusion. Progress Note: Labs, CT Angio Chest, CT Chest ordered and reviewed. Toradol IVP and IV Fluids administered. Disposition Counseled Patient/Family Regarding: Diagnosis - Disposition Referrals: [facility] [Outside] Disposition: HOME/ ROUTINE Disposition Time: 22:58 Condition: STABLE Prescriptions: Naproxen 375 mg PO TIDPC #14 tablet Instructions: Flank Pain (ED), Chest Wall Pain (ED) Forms: [facility] (Greenlandic), Gen Discharge Inst Albanian Print Language: ESTONIAN - POA Present On Arrival: None - Clinical Impression Clinical Impression: Flank pain, Right-sided chest wall pain - Scribe Statement The provider has reviewed the documentation as recorded by the Scribe (Faby oTmas) Provider Attestation: All medical record entries made by the Scribe were at my direction and personally dictated by me. I have reviewed the chart and agree that the record accurately reflects my personal performance of the history, physical exam, medical decision making, and the department course for this patient. I have also personally directed, reviewed, and agree with the discharge instructions and disposition.
[2017-03-07 19:37] LABS: BASO % 0.4 % (0.0-2.0); EOS # 0.1 K/uL (0.0-0.7); HEMATOCRIT 41.1 % (35.0-51.0); LYMPH # 1.6 K/uL (1.0-4.3); LYMPH % 23.8 % (20.0-40.0); MEAN CELL VOLUME 93.6 fL (80.0-94.0); MEAN CORPUSCULAR HEMOGLOBIN 32.2 pg (27.0-31.0); MEAN CORPUSCULAR HGB CONC 34.4 g/dL (33.0-37.0); MEAN PLATELET VOLUME 8.9 fL (7.2-11.7); MONO # 0.6 K/uL (0.0-0.8); MONO % 9.6 % (0.0-10.0); WHITE BLOOD COUNT 6.6 K/uL (4.8-10.8)
[2017-03-07] MEDS ORDERED: Iohexol 240 (50 ml) ONE (19:45)
[2017-03-07] MEDS ORDERED: Sodium Chloride 0.9% 1,000 ML ONE (19:45)
[2017-03-07 19:46] LABS: CHLORIDE 99 mmol/L (98-107); SODIUM 135 mmol/L (132-148)
[2017-03-07 19:47] LABS: POTASSIUM 4.1 mmol/L (3.6-5.2)
[2017-03-07 19:48] LABS: GFR AFRICAN-AMERICAN > 60
[2017-03-07 19:49] LABS: ALB/GLOB RATIO 1.3 (1.0-2.1); ALKALINE PHOSPHATASE 113 U/L (38-126); ALT/SGPT 24 U/L (21-72); AST/SGOT 20 U/L (17-59); BILIRUBIN,TOTAL 1.6 mg/dL (0.2-1.3); BLOOD UREA NITROGEN 20 mg/dL (9-20); CALCIUM 9.3 mg/dl (8.6-10.4); CARBON DIOXIDE 25 mmol/L (22-30); GLUCOSE,RANDOM 119 mg/dL (75-110); TOTAL PROTEIN 8.1 g/dL (6.3-8.3)
[2017-03-07 20:29] LABS: RBC URINE < 1 /hpf (0-3); URINE BACTERIA RARE (<OCC); URINE BILIRUBIN NEGATIVE (NEGATIVE); URINE BLOOD NEGATIVE (NEGATIVE); URINE COLOR Yellow (YELLOW); URINE GLUCOSE (UA) NORMAL (Normal); URINE KETONE NEGATIVE (NEGATIVE); URINE LEUKOCYTE ESTERASE NEG Leu/uL (Negative); URINE PROTEIN NEGATIVE (NEGATIVE); WBC URINE 4 /hpf (0-5)
[2017-03-07] MEDS ORDERED: Iodixanol 320 MG/ML 100 ML BOTTLE IV ONE (20:30)
--- NOTE | 2017-03-07 22:48 | CT ---
EXAM: CT Abdomen and Pelvis With Intravenous Contrast CLINICAL HISTORY: 51 years old, male; Pain; Abdominal pain; Flank; Right upper quadrant (ruq); Chest wall pain; Additional info: Right lowqer chest and rib cage pain TECHNIQUE: Axial computed tomography images of the abdomen and pelvis with intravenous contrast. All CT scans at this facility use one or more dose reduction techniques, viz.: automated exposure control; ma/kV adjustment per patient size (including targeted exams where dose is matched to indication; i.e. head); or iterative reconstruction technique. Coronal and sagittal reformatted images were created and reviewed. CONTRAST: 100 mL of VISIPAQUE 320 administered intravenously. COMPARISON: No relevant prior studies available. FINDINGS: ABDOMEN: Liver: No acute findings. Gallbladder and bile ducts: The gallbladder is decompressed. No calcified stones. No significant intra- or extrahepatic biliary ductal dilation. Pancreas: Enhances homogeneously. No ductal dilation. No discrete mass. Spleen: No acute findings. Adrenals: No acute findings. Kidneys and ureters: No acute findings. No hydronephrosis or renal calculi. No discrete solid mass. PELVIS: Bladder: No acute findings. Reproductive: No acute findings. Appendix: The air filled appendix is of normal caliber (series 6, image 118) . ABDOMEN and PELVIS: Stomach and bowel: No obstruction. No mucosal thickening. Colonic diverticulosis, with trace mural thickening, likely peristalsis. Peritoneum: No significant fluid collection. No free air. Lymph nodes: No pathologically enlarged lymph nodes. Vasculature: Calcified atherosclerotic disease. Bones: No acute fracture. IMPRESSION: Colonic diverticulosis, without inflammation. No CT findings to explain the patient's right upper quadrant pain, as detailed above.. EXAM: CT Chest With Intravenous Contrast CLINICAL HISTORY: 51 years old, male; Pain; Abdominal pain; Flank; Right upper quadrant (ruq); Chest wall pain; Additional info: Right lowqer chest and rib cage pain TECHNIQUE: Axial computed tomography images of the chest with intravenous contrast. All CT scans at this facility use one or more dose reduction techniques, viz.: automated exposure control; ma/kV adjustment per patient size (including targeted exams where dose is matched to indication; i.e. head); or iterative reconstruction technique. Coronal and sagittal reformatted images were created and reviewed. CONTRAST: 100 mL of VISIPAQUE 320 administered intravenously. COMPARISON: None FINDINGS: Lungs: No mass. No consolidation. Patchy groundglass bibasilar opacification, with interstitial thickening. Pleural spaces: No significant effusion. No pneumothorax. Heart: No cardiomegaly. No significant pericardial effusion. Vasculature: No aortic aneurysm. Lymph nodes: No enlarged lymph nodes. Bones: No acute fracture. IMPRESSION: Patchy groundglass bibasilar opacification with interstitial thickening, findings suggesting pulmonary vascular congestion. No focal infiltrate or effusion.
[2017-03-07 23:32] VITALS: BP 145/81; PULSE 74; RESP 20; TEMP 98.3; O2SAT 99
== END 2017-03-07 23:20 | disposition home or self-care (01) ==
LOC: C.ER 18:17
DX: R10.9 Unspecified abdominal pain (principal); R07.89 Other chest pain
CPT/HCPCS: 71260; 74177; 80053; 81001; 83690; 85025; 96374; 99284; J1885; J7040; Q9966; Q9967

== ENCOUNTER 2017-08-25 08:36 | Emergency (ER) | payer OTHER, SELFPAY ==
[2017-08-25 08:37] VITALS: BMI 30.9
--- NOTE | 2017-08-25 09:33 | C.PDOC ---
History Of Present Illness 52 y/o M p/w dizziness x 4 days. Dizziness is intermittent, seems to occur when awakening in bed, described as a room spinning sensation. Denies headache, ear pain, trauma, nausea, vomiting, weakness. Time Seen by Provider: 08/25/17 08:52 Chief Complaint (Nursing): Dizziness/Lightheaded Past Medical History Vital Signs: Last Vital Signs Temp 97.8 F 08/25/17 08:40 Pulse 71 08/25/17 08:40 Resp 14 08/25/17 08:40 BP 159/82 H 08/25/17 08:40 Pulse Ox 99 08/25/17 08:40 - Medical History PMH: Asthma, Bronchitis, Gastritis, HTN, Hyperlipidemia, Kidney Stones, Malignancy (Renal cell carcinoma as per recent biopsy), Chronic Kidney Disease, Sleep Apnea - [facility] Procedures DRAINAGE OF L HAND SUBCU/FASCIA, OPEN APPROACH (08/14/16) Family History: States: Unknown Family Hx - Social History Hx Tobacco Use: No Hx Alcohol Use: No Hx Substance Use: No - Immunization History Hx Tetanus Toxoid Vaccination: No Hx Influenza Vaccination: Yes Hx Pneumococcal Vaccination: Yes Review Of Systems Except As Marked, All Systems Reviewed And Found Negative. Constitutional: Negative for: Fever Respiratory: Negative for: Shortness of Breath Physical Exam - Physical Exam Additional Physical Exam Comments: Gen: NAD Head: NC/AT Eyes: PERRL ENT: MMM, no erythema or exudates, no ear swelling Neck: No rigidity CV: Regular rate Abd: Soft, NT, ND Extremities: No swelling or tenderness Skin: No rash Neuro: Alert, CN II to XII intact. Moves all extremities. Gait stable. Positive Deann Hallpike. ED Course And Treatment O2 Sat by Pulse Oximetry: 99 Disposition - Disposition Referrals: Zeeshan Brown MD [Staff Provider] - Disposition: HOME/ ROUTINE Disposition Time: 09:33 Condition: STABLE Prescriptions: Meclizine [Antivert] 25 mg PO TID PRN #20 tab PRN Reason: Dizziness Instructions: Vertigo (a Type of Dizziness) Forms: [facility] (Citizen Of [place]), Gen Discharge Inst Sinhala - Clinical Impression Clinical Impression: BPPV (benign paroxysmal positional vertigo)
[2017-08-25 11:06] VITALS: BP 143/80; PULSE 80; RESP 16; TEMP 98.7; O2SAT 98
== END 2017-08-25 10:50 | disposition home or self-care (01) ==
LOC: C.ER 08:36
DX: H81.10 Benign paroxysmal vertigo, unspecified ear (principal)

== ENCOUNTER 2017-09-23 17:44 | Emergency (ER) | payer SELFPAY ==
[2017-09-23 17:44] VITALS: BMI 30.9
[2017-09-23 17:56] VITALS: RESP 18
--- NOTE | 2017-09-23 18:41 | C.PDOC ---
History Of Present Illness 52 year old male, whose PMHx includes kidney stones, presents to the ED for evaluation of abdominal pain which has been ongoing for the past month. Patient has been evaluated by clinic doctor and was prescribed Pepcid without improvement. Patient notes symptoms are worse with eating and denies nausea, vomiting and diarrhea at this time. Time Seen by Provider: 09/23/17 18:22 Chief Complaint (Nursing): Abdominal Pain Past Medical History Vital Signs: Last Vital Signs Temp 97.8 F 09/23/17 19:54 Pulse 62 09/23/17 19:54 Resp 18 09/23/17 19:54 BP 134/75 09/23/17 19:54 Pulse Ox 99 09/23/17 20:52 - Medical History PMH: Asthma, Bronchitis, Gastritis, HTN, Hyperlipidemia, Kidney Stones, Malignancy (Renal cell carcinoma as per recent biopsy), Chronic Kidney Disease, Sleep Apnea - [facility] Procedures DRAINAGE OF L HAND SUBCU/FASCIA, OPEN APPROACH (08/14/16) Family History: States: Unknown Family Hx - Social History Hx Tobacco Use: No Hx Alcohol Use: No Hx Substance Use: No - Immunization History Hx Tetanus Toxoid Vaccination: No Hx Influenza Vaccination: Yes Hx Pneumococcal Vaccination: Yes Physical Exam - Physical Exam Appears: Non-toxic, No Acute Distress Skin: Normal Color, Warm, Dry Head: Atraumatic, Normacephalic Eye(s): bilateral: Normal Inspection Oral Mucosa: Moist Neck: Supple Chest: Symmetrical, No Deformity, No Tenderness Cardiovascular: Rhythm Regular, No Murmur Respiratory: Normal Breath Sounds, No Rales, No Rhonchi, No Wheezing Gastrointestinal/Abdominal: Bowel Sounds (positive ), Soft, Tenderness ( epigastric ), No Guarding, No Rebound Extremity: Normal ROM, Capillary Refill (less than 2 seconds ) Neurological/Psych: Oriented x3, Normal Speech, Normal Cognition ED Course And Treatment - Laboratory Results Result Diagrams: 09/23/17 19:00 09/23/17 19:00 ECG: Interpreted By Me, Viewed By Me ECG Rhythm: Sinus Rhythm ECG Interpretation: Normal Interpretation Of ECG: Normal interval and axis. LVH, isolated T wave inversions. Rate From EC O2 Sat by Pulse Oximetry: 99 (on RA) Pulse Ox Interpretation: Normal - CT Scan/US CT abd/pel Other Rad Studies (CT/US): Read By Radiologist, Radiology Report Reviewed CT/US Interpretation: EXAM: CT Abdomen and Pelvis With Intravenous Contrast. CLINICAL HISTORY: 52 years old, male; Pain; Abdominal pain; Additional info: Abd pain. TECHNIQUE: Axial computed tomography images of the abdomen and pelvis with intravenous contrast. All CT. scans at this facility use one or more dose reduction techniques, viz.: automated exposure control;. ma/kV adjustment per patient size (including targeted exams where dose is matched to indication; i.e. head); or iterative reconstruction technique. Coronal and sagittal reformatted images were created and reviewed. CONTRAST: 100 mL of omnipaque 300 administered intravenously. COMPARISON: CT - ABD PELVIS IV CONTRAST ONLY 2015-07-03 09:48. FINDINGS: Lung bases: Atelectasis. ABDOMEN: Liver: No acute abnormality as visualized. Gallbladder and bile ducts: No acute abnormality as visualized. Pancreas: No acute abnormality as visualized. Spleen: No splenomegaly. Adrenals: No acute abnormality as visualized. Kidneys and ureters: Significant interval scarring and atrophy of the right kidney compared to the. prior study. Hypoattenuating focus in the right kidney with calcification. Nonobstructing left intrarenal. calculus. Stomach and bowel: Limited evaluation without enteric contrast. Mottled appearance to material. within small bowel suggesting delayed transit. No obstruction. Retained fecal material in the colon. PELVIS: Appendix: Evidence of appendicoliths. No evidence of acute appendicitis. Bladder: No acute abnormality as visualized. Reproductive: No acute abnormality as visualized. ABDOMEN and PELVIS: Intraperitoneal space: No free air. No significant fluid collection. Bones/joints: Degenerative changes. Mild anterior wedging of L1. Soft tissue: Minimal fat containing umbilical and left inguinal hernia. Vasculature: Atherosclerosis. No abdominal aortic aneurysm. Lymph nodes: No acute abnormality as visualized. IMPRESSION: Significant interval scarring and atrophy of the right kidney compared to the prior study. Hypoattenuating focus in the right kidney with calcification. Nonobstructing left intrarenal calculus. Limited evaluation of bowel without enteric contrast. Mottled appearance to material within small. bowel suggesting delayed transit. Retained fecal material in the colon. Please see additional details/findings as above. Correlate clinically. Followup as warranted. Medical Decision Making Medical Decision Making: Assessment: abdominal pain Plan: * bloodwork * CT A/P * CXR * EKG * Protonix IVP * Toradol IVP * reassess and dispositon Progress: Bloodwork, CT A/P, CXR, and EKG ordered and reviewed. Protonix IVP and Toradol IVP administered. cxr - prelim. reading - Right hilar prominence. Focal opacity at the right lung base again noted suggestive for either eventeration of the right hemidiaphragm which may be related to a hernia. patient resting comfortably. States improvement. Will discharge home to follow up with gastroenterology in 2 days. Disposition Counseled Patient/Family Regarding: Studies Performed, Diagnosis - Disposition Referrals: Zeeshan Portillo MD [Staff Provider] - Disposition: HOME/ ROUTINE Disposition Time: 20:49 Condition: STABLE Additional Instructions: follow up with Dr. Portillo in 2 days call to make an appointment take medications as prescribed return to hospital if symptoms worsens or progress take copy of your cat scan results with you to your follow up appointment Prescriptions: Pantoprazole Sodium [Protonix] 40 mg PO DAILY #15 ect traMADol [Ultram] 50 mg PO TID PRN #12 tab PRN Reason: Pain, Moderate (4-7) Instructions: Acute Abdomen (Belly Pain), Adult (DC), Hiatal Hernia (DC) Forms: Gen Discharge Inst Marshallese, [employer] (Marshallese) Print Language: SLOVAK - Clinical Impression Clinical Impression: Abdominal pain, Hiatal hernia - Scribe Statement The provider has reviewed the documentation as recorded by the Scribe (aFby Tomsa) Provider Attestation: All medical record entries made by the Scribe were at my direction and personally dictated by me. I have reviewed the chart and agree that the record accurately reflects my personal performance of the history, physical exam, medical decision making, and the department course for this patient. I have also personally directed, reviewed, and agree with the discharge instructions and disposition.
[2017-09-23] MEDS ORDERED: Iohexol 300 100 ML IJ ONE (18:42)
[2017-09-23 19:03] LABS: BASO % 0.1 % (0.0-2.0); EOS # 0.1 K/uL (0.0-0.7); EOS % 1.3 % (0.0-4.0); HEMOGLOBIN 13.6 g/dL (12.0-18.0); LYMPH # 1.7 K/uL (1.0-4.3); LYMPH % 26.7 % (20.0-40.0); MEAN CELL VOLUME 92.5 fL (80.0-94.0); MEAN CORPUSCULAR HEMOGLOBIN 31.8 pg (27.0-31.0); MEAN CORPUSCULAR HGB CONC 34.4 g/dL (33.0-37.0); MEAN PLATELET VOLUME 8.9 fL (7.2-11.7); MONO # 0.5 K/uL (0.0-0.8); MONO % 7.1 % (0.0-10.0); NEUT # 4.1 K/uL (1.8-7.0); NEUT % 64.8 % (50.0-75.0); RBC 4.27 Mil/uL (4.40-5.90); WHITE BLOOD COUNT 6.4 K/uL (4.8-10.8)
[2017-09-23 19:15] LABS: ALB/GLOB RATIO 1.3 (1.0-2.1); ALBUMIN 4.4 g/dL (3.5-5.0); ALT/SGPT 25 U/L (21-72); AST/SGOT 21 U/L (17-59); BLOOD UREA NITROGEN 19 mg/dL (9-20); CALCIUM 8.6 mg/dl (8.6-10.4); GFR AFRICAN-AMERICAN > 60; GFR NON-AFRICAN AMERICAN > 60; LIPASE 73 U/L (23-300)
--- NOTE | 2017-09-23 20:04 | CT ---
EXAM: CT Abdomen and Pelvis With Intravenous Contrast CLINICAL HISTORY: 52 years old, male; Pain; Abdominal pain; Additional info: Abd pain TECHNIQUE: Axial computed tomography images of the abdomen and pelvis with intravenous contrast. All CT scans at this facility use one or more dose reduction techniques, viz.: automated exposure control; ma/kV adjustment per patient size (including targeted exams where dose is matched to indication; i.e. head); or iterative reconstruction technique. Coronal and sagittal reformatted images were created and reviewed. CONTRAST: 100 mL of omnipaque 300 administered intravenously. COMPARISON: CT - ABD PELVIS IV CONTRAST ONLY 2015-07-03 09:48 FINDINGS: Lung bases: Atelectasis. ABDOMEN: Liver: No acute abnormality as visualized. Gallbladder and bile ducts: No acute abnormality as visualized. Pancreas: No acute abnormality as visualized. Spleen: No splenomegaly. Adrenals: No acute abnormality as visualized. Kidneys and ureters: Significant interval scarring and atrophy of the right kidney compared to the prior study. Hypoattenuating focus in the right kidney with calcification. Nonobstructing left intrarenal calculus. Stomach and bowel: Limited evaluation without enteric contrast. Mottled appearance to material within small bowel suggesting delayed transit. No obstruction. Retained fecal material in the colon. PELVIS: Appendix: Evidence of appendicoliths. No evidence of acute appendicitis. Bladder: No acute abnormality as visualized. Reproductive: No acute abnormality as visualized. ABDOMEN and PELVIS: Intraperitoneal space: No free air. No significant fluid collection. Bones/joints: Degenerative changes. Mild anterior wedging of L1. Soft tissue: Minimal fat containing umbilical and left inguinal hernia. Vasculature: Atherosclerosis. No abdominal aortic aneurysm. Lymph nodes: No acute abnormality as visualized. IMPRESSION: Significant interval scarring and atrophy of the right kidney compared to the prior study. Hypoattenuating focus in the right kidney with calcification. Nonobstructing left intrarenal calculus. Limited evaluation of bowel without enteric contrast. Mottled appearance to material within small bowel suggesting delayed transit. Retained fecal material in the colon. Please see additional details/findings as above. Correlate clinically. Followup as warranted.
[2017-09-23 21:09] VITALS: BP 136/80; PULSE 64; TEMP 98; O2SAT 100
--- NOTE | 2017-09-24 08:13 | RAD ---
Chest x-ray single frontal view History: Abdominal pain. Comparison: 10/07/2016 Findings: Right hilar prominence. Focal opacity at the right lung base again noted suggestive for eventeration of the right hemidiaphragm or possible hernia. Mild patchy increased markings at the right lung base suggestive for mild atelectasis and or subtle infiltrate. Tortuous ectatic aorta. Calcification at the aortic knob. Degenerative changes in the spine with a scoliotic curvature. Impression: Right hilar prominence. Focal opacity at the right lung base again noted suggestive for eventeration of the right hemidiaphragm or possible hernia. Mild patchy increased markings at the right lung base suggestive for mild atelectasis and or subtle infiltrate. Tortuous ectatic aorta. Calcification at the aortic knob.
--- NOTE | 2017-09-24 16:22 | CARD ---
APPROVED REPORT EKG Measurement Heart [id number] <Conclusion> Sinus bradycardia Minimal voltage criteria for LVH, may be normal variant Borderline ECG
== END 2017-09-23 21:09 | disposition home or self-care (01) ==
LOC: C.ER 17:44
DX: K44.9 Diaphragmatic hernia without obstruction or gangrene (principal); R10.9 Unspecified abdominal pain; E78.5 Hyperlipidemia, unspecified; I12.9 Hypertensive chronic kidney disease with stage 1 through stage 4 chronic kidney disease, or unspecified chronic kidney disease; N18.9 Chronic kidney disease, unspecified
CPT/HCPCS: 71045; 74177; 80053; 83690; 84484; 85025; 93005; 96374; 96375; 99284; C9113; J1885; Q9967

== ENCOUNTER 2017-11-12 20:46 | Emergency (ER) | payer OTHER ==
[2017-11-12 20:46] VITALS: BMI 30.3
[2017-11-12] MEDS ORDERED: Alum-Mag Hydrox-Simethicone Susp (30 mL) PO STA (21:35)
[2017-11-12] MEDS ORDERED: Alum-Mag Hydrox-Simethicone Susp (30 mL) ONE (21:43)
[2017-11-12 21:45] LABS: BASO % 0.2 % (0.0-2.0); EOS # 0.1 K/uL (0.0-0.7); EOS % 1.3 % (0.0-4.0); HEMOGLOBIN 13.5 g/dL (12.0-18.0); LYMPH # 2.3 K/uL (1.0-4.3); MEAN CORPUSCULAR HEMOGLOBIN 31.5 pg (27.0-31.0); MEAN CORPUSCULAR HGB CONC 34.3 g/dL (33.0-37.0); MEAN PLATELET VOLUME 8.7 fL (7.2-11.7); MONO # 0.6 K/uL (0.0-0.8); MONO % 8.2 % (0.0-10.0); NEUT # 3.9 K/uL (1.8-7.0); NEUT % 57.3 % (50.0-75.0); RBC 4.29 Mil/uL (4.40-5.90); RED CELL DISTRIBUTION WIDTH 13.1 % (11.5-14.5); WHITE BLOOD COUNT 6.9 K/uL (4.8-10.8)
[2017-11-12 22:02] LABS: ALB/GLOB RATIO 1.3 (1.0-2.1); ALBUMIN 4.7 g/dL (3.5-5.0); ALT/SGPT 28 U/L (21-72); AST/SGOT 34 U/L (17-59); BLOOD UREA NITROGEN 17 mg/dL (9-20); CALCIUM 9.2 mg/dl (8.6-10.4); GFR AFRICAN-AMERICAN > 60; GFR NON-AFRICAN AMERICAN > 60; LIPASE 64 U/L (23-300)
[2017-11-12 22:21] VITALS: RESP 22; O2SAT 97
--- NOTE | 2017-11-12 23:05 | C.PDOC ---
Time Seen by Provider: 11/12/17 21:20 Chief Complaint (Nursing): Abdominal Pain History Per: Patient Onset/Duration Of Symptoms: Days, Intermittent Episodes Current Symptoms Are (Timing): Still Present Location Of Pain/Discomfort: RUQ, Epigastric Quality Of Discomfort: "Pain" Exacerbating Factors: Movement, Food Additional History Per: Prior Records Past Medical History Reviewed: Historical Data, Nursing Documentation, Vital Signs Vital Signs: Last Vital Signs Temp 98.3 F 11/12/17 20:53 Pulse 69 11/12/17 22:20 Resp 22 11/12/17 22:20 BP 155/84 H 11/12/17 22:20 Pulse Ox 97 11/12/17 22:20 - Medical History PMH: Asthma, Bronchitis, Gastritis, HTN, Hyperlipidemia, Kidney Stones, Malignancy (Renal cell carcinoma as per recent biopsy), Chronic Kidney Disease, Sleep Apnea - [facility] Procedures DRAINAGE OF L HAND SUBCU/FASCIA, OPEN APPROACH (08/14/16) Family History: States: Unknown Family Hx - Social History Hx Tobacco Use: No Hx Alcohol Use: No Hx Substance Use: No - Immunization History Hx Tetanus Toxoid Vaccination: No Hx Influenza Vaccination: Yes Hx Pneumococcal Vaccination: Yes Review Of Systems Except As Marked, All Systems Reviewed And Found Negative. Constitutional: Negative for: Fever, Weakness Respiratory: Negative for: Shortness of Breath, Hemoptysis Gastrointestinal: Negative for: Vomiting, Diarrhea, Melena, Hematochezia, Hematemesis Genitourinary: Negative for: Dysuria, Hematuria Musculoskeletal: Negative for: Neck Pain, Back Pain Skin: Negative for: Rash Neurological: Negative for: Weakness, Numbness Physical Exam - Physical Exam Appears: Non-toxic, No Acute Distress Skin: Normal Color, Warm, Dry, No Rash Head: Atraumatic, Normacephalic Eye(s): bilateral: Normal Inspection, PERRL, EOMI Neck: Normal ROM, Supple Chest: Symmetrical, No Deformity Cardiovascular: Rhythm Regular Respiratory: Normal Breath Sounds, No Accessory Muscle Use Gastrointestinal/Abdominal: Soft, Tenderness (right epigastric area), No Distention, No Guarding, No Rebound Back: No CVA Tenderness Extremity: Normal ROM, No Pedal Edema, No Calf Tenderness Neurological/Psych: Oriented x3, Normal Motor, Normal Sensation ED Course And Treatment - Laboratory Results Result Diagrams: 11/12/17 21:39 11/12/17 21:39 Lab Interpretation: No Acute Changes ECG: Interpreted By Me, Viewed By Me ECG Rhythm: Sinus Rhythm, Nonspecific Changes ECG Interpretation: No Acute Changes Rate From EC O2 Sat by Pulse Oximetry: 97 Pulse Ox Interpretation: Normal Reassessment Condition: Improved Progress - Interventions Interventions:: Observation - Medications Administered Oral: Antacid Intravenous: Antiemetic, H-2 william - Data Reviewed Data Reviewed: Lab, EKG, Old records - Patient Status Patient status: Mostly improved - Continuity of Care Discussed patient case with:: Patient, ED Nurse - Patient Plan Patient Plan: Discharge, F/U with PCP, Continue present meds Medical Decision Making Medical Decision Making: Pt has been worked up for this pain previously with negative CT scan and US. Disposition Counseled Patient/Family Regarding: Studies Performed, Diagnosis, Need For Followup, Rx Given - Disposition Referrals: [facility] [Outside] Disposition: HOME/ ROUTINE Disposition Time: 23:06 Condition: STABLE Additional Instructions: Follow up with a Patent Drafter for further evaluation and treatment. Return to the ER if you develop fever, vomiting, worsening of symptoms or if you have any other concerns. Prescriptions: Sucralfate [Carafate] 1 gm PO BID #120 tab Instructions: Gastritis (DC), Ulcer and Gastritis Diet Print Language: MEXICAN - Clinical Impression Clinical Impression: Upper abdominal pain
[2017-11-12 23:14] VITALS: BP 133/73; PULSE 67; TEMP 98
--- NOTE | 2017-11-13 19:36 | CARD ---
APPROVED REPORT EKG Measurement Heart [id number] <Conclusion> Normal sinus rhythm Possible Left atrial enlargement Incomplete right bundle branch block Left ventricular hypertrophy Abnormal ECG
== END 2017-11-12 23:20 | disposition home or self-care (01) ==
LOC: C.ER 20:46
DX: R10.10 Upper abdominal pain, unspecified (principal); I12.9 Hypertensive chronic kidney disease with stage 1 through stage 4 chronic kidney disease, or unspecified chronic kidney disease; N18.9 Chronic kidney disease, unspecified; E78.5 Hyperlipidemia, unspecified
CPT/HCPCS: 80053; 83690; 84484; 85025; 93005; 96374; 96375; 99285; J2765

== ENCOUNTER 2017-12-09 17:58 | Emergency (ER) | payer OTHER ==
[2017-12-09 17:59] VITALS: BMI 30.3
--- NOTE | 2017-12-09 18:43 | C.PDOC ---
History Of Present Illness 52 year old male presents to the emergency department with complaints of digitally reproducible pain to his parasternal area bilaterally for the last two days. 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 Patient complains of abdominal bloating and periumbilical aching pain after large meals. Time Seen by Provider: 12/09/17 18:22 Chief Complaint (Nursing): Chest Pain History Per: Patient History/Exam Limitations: no limitations Onset/Duration Of Symptoms: Days (2) Current Symptoms Are (Timing): Still Present Context: Food Quality: Aching, "Pain", Other (bloating) Past Medical History Reviewed: Historical Data, Nursing Documentation, Vital Signs Vital Signs: Last Vital Signs Temp 98.6 F 12/09/17 18:12 Pulse 77 12/09/17 18:12 Resp 20 12/09/17 18:12 BP 132/63 12/09/17 18:12 Pulse Ox 97 12/09/17 18:43 - Medical History PMH: Asthma, Bronchitis, Gastritis, HTN, Hyperlipidemia, Kidney Stones, Malignancy (Renal cell carcinoma as per recent biopsy), Chronic Kidney Disease, Sleep Apnea Surgical History: No Surg Hx - [facility] Procedures DRAINAGE OF L HAND SUBCU/FASCIA, OPEN APPROACH (08/14/16) Family History: States: No Known Family Hx - Social History Hx Tobacco Use: No Hx Alcohol Use: No Hx Substance Use: No - Immunization History Hx Tetanus Toxoid Vaccination: No Hx Influenza Vaccination: Yes Hx Pneumococcal Vaccination: Yes Review Of Systems Except As Marked, All Systems Reviewed And Found Negative. Cardiovascular: Positive for: Chest Pain (bilateral parasternal area) Gastrointestinal: Positive for: Abdominal Pain (bloating and periumbilical aching pain) Physical Exam - Physical Exam Appears: Non-toxic, No Acute Distress Skin: Warm, Dry, No Rash Head: Atraumatic, Normacephalic Eye(s): bilateral: Normal Inspection Nose: Normal Oral Mucosa: Moist Throat: Normal, No Erythema, No Exudate Neck: Normal, Supple Chest: Symmetrical, No Deformity, Tenderness (reproducible pain to the bilateral sternal area near T4-T5) Cardiovascular: Rhythm Regular, No Murmur Respiratory: Normal Breath Sounds, No Rales, No Rhonchi, No Wheezing Gastrointestinal/Abdominal: Normal Exam, Bowel Sounds (active), Soft, No Tenderness, No Guarding, No Rebound Neurological/Psych: Oriented x3, Normal Speech, Normal Cognition ED Course And Treatment ECG: Interpreted By Me ECG Rhythm: Sinus Rhythm ECG Interpretation: Normal Rate From EC O2 Sat by Pulse Oximetry: 97 (RA) Pulse Ox Interpretation: Normal Medical Decision Making Medical Decision Making: 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 Plan: Motrin 400mg PO Disposition Doctor Will See Patient In The: Office Counseled Patient/Family Regarding: Studies Performed, Diagnosis - Disposition [facility]Outside[facility] Jae Palacio Jr., MD [Staff Provider] - Disposition: HOME/ ROUTINE Disposition Time: 18:42 Condition: GOOD Additional Instructions: Estrenemiento: come 7 verduras y frutas CRUDAS diarios para evitar el estrenemiento Angina Intestinal: come comidas pequenas 4-5 veces al mayur en lugar de veronica comida shell diario. Sigue con crawford cirjuano vascular o' Dr. Palacio (llama para hacer juan) en 2 pool - ya tiene juan Dolor del pared del pecho: Costochondritis ibuprofeno 400 mg cada 6 horas rosemarie necessario Si el dolor es reproducabile con crawford dedo o movemiento del hombros, es algo muscular y NO Cardiaco EKG normal hoy. Instructions: Constipation in Adults, Ischemic Bowel Disease, Costochondritis Forms: [facility] (Romansh) Print Language: BRAZILIAN - Clinical Impression Clinical Impression: Chest wall discomfort, Mesenteric angina - Scribe Statement The provider has reviewed the documentation as recorded by the Scribe (Aaron Mahajan) Provider Attestation: All medical record entries made by the Scribe were at my direction and personally dictated by me. I have reviewed the chart and agree that the record accurately reflects my personal performance of the history, physical exam, medical decision making, and the department course for this patient. I have also personally directed, reviewed, and agree with the discharge instructions and disposition.
[2017-12-09 19:16] VITALS: BP 123/72; PULSE 75; RESP 16; TEMP 98.2; O2SAT 99
--- NOTE | 2017-12-12 10:11 | CARD ---
APPROVED REPORT Date of service: 12/09/2017 EKG Measurement Heart [id number] <Conclusion> Normal sinus rhythm Incomplete right bundle branch block Left ventricular hypertrophy Abnormal ECG
== END 2017-12-09 19:16 | disposition home or self-care (01) ==
LOC: C.ER 17:58
DX: R07.89 Other chest pain (principal); K55.1 Chronic vascular disorders of intestine